=== PATIENT | female | born 1950 ===

== ENCOUNTER 2021-10-23 10:32 | Emergency (ER) | payer OTHER ==
--- OUTSIDE RECORDS SUMMARY | 2021-10-23 10:35 | XMS REPORT | Continuity of Care Document ---
:1950 Author Organization [facility] t Address [address] [place] [address] Dr. Aponte. [address] [place] [address] Care Team Providers Name Role Phone Michael Trivedi MD Attending Clinician Problems This patient has no known problems. Allergies, Adverse Reactions, Alerts This patient has no known allergies or adverse reactions. Medications This patient has no known medications. Procedures This patient has no known procedures. Encounters Start End Encounter Admission Attending Care Care Encounter Source Date/Time Date/Time Type Type Clinicians Facility Department ID 2019-09-04 2019-09-04 Telephone ROZINA Trivedi [id number] 00:00:00 00:00:00 Farhad Muñoz [id number] Antonella [id number] Jamie [id number] nal 092 Building Results This patient has no known results.
[2021-10-23 10:58] LABS: Urine Blood Negative (Negative); Urine Glucose Negative (Negative); Urine Protein 1+ (Negative); Urine Specific Gravity 1.015 (1.005-1.030); Urine pH 8.5 (5.0-7.0)
[2021-10-23 11:45] LABS: Absolute Lymphocytes (CBC) 1.3 K/uL (0.7-4.9); Hematocrit 46.5 % (36.0-45.0); MPV 9.5 fL (7.6-11.3)
[2021-10-23 12:12] LABS: Albumin 3.9 g/dL (3.4-5.0); Bilirubin Total 0.8 mg/dL (0.2-1.0); Potassium 3.6 mmol/L (3.5-5.1); Protein, Total 7.6 g/dL (6.4-8.2)
--- NOTE | 2021-10-23 12:55 | RAD REPORT ---
EXAM DESCRIPTION: CTAbdomen Pelvis W Contrast - 10/23/2021 12:43 pm CLINICAL HISTORY: Abdominal pain. ABD PAIN COMPARISON: No comparisons TECHNIQUE: Biphasic CT imaging of the abdomen and pelvis was performed with 100 ml non-ionic IV cont rast. All CT scans are performed using dose optimization technique as appropriate and may include automated exposure control or mA/KV adjustment according to patient size. FINDINGS: The lung bases are clear.Cholecystectomy. The liver, spleen, pancreas, adrenal glands and kidneys are within normal limits. No bowel obstruction, free air, free fluid or abscess. The appendix is not identified as a discrete structure, however, no secondary findings of appendicitis are identified. No evidence of significan t lymphadenopathy. No suspicious bony findings. IMPRESSION: No acute intra-abdominal or pelvic finding.
--- NOTE | 2021-10-23 13:36 | EDPHYS ---
Physician Documentation [facility] Name: Nida Cruz Age: 71 yrs Sex: Female : 1950 Arrival Date: 10/23/2021 Time: 10:35 Bed 17 Private MD: ED Physician Nav Carter HPI: 10/23 18:01 This 71 yrs old Female presents to ER via Ambulatory with complaints of Abdominal Pain, kdr Abdominal Swelling. 18:01 The patient presents with abdominal pain in the lower abdomen, in the left lower kdr quadrant. Onset: The symptoms/episode began/occurred gradually, 4 day(s) ago. The symptoms do not radiate. Associated signs and symptoms: none. The symptoms are described as achy, dull, vague. Modifying factors: The symptoms are alleviated by nothing, the symptoms are aggravated by nothing. Severity of pain: At its worst the pain was mild moderate just prior to arrival, in the emergency department the pain is unchanged. The patient has not experienced similar symptoms in the past. The patient has been recently seen by a physician: the patient's primary care provider. Patient has been having abdominal pain since Saturday the . She has been feeling full since then. She states that she is unable to eat much due to the fullness that she feels. Patient was sent to the ED for evaluation by Dr. Gutiérrez. Historical: - Allergies: 10:57 Prednisone; ap3 10:57 ceftriaxone; ap3 - Home Meds: 10:57 [place] Thyroid 120 mg Oral tab 1 tab [Active]; losartan-hydrochlorothiazide 50-12.5 mg ap3 oral tab [Active]; Singulair Oral [Active]; Claritin 10 mg Oral tab [Active]; Zetia 10 mg Oral tab 1 tab once daily [Active]; ProAir HFA 90 mcg/actuation inhalation HFAA 1 puff every 4 hours [Active]; Nasonex 50 mcg/actuation Nasal spry [Active]; Restasis 0.05 % ophthalmic (eye) dpet [Active]; tramadol 50 mg Oral tab 1 tab six a day [Active]; Probiotic 30 billion oral [Active]; Trelegy Ellipta 100-62.5-25 mcg inhalation dsdv 1 puff once daily [Active]; hydroxychloroquine 200 mg oral tab [Active]; Mucinex oral [Active]; Famotidine Oral [Active]; omeprazole 20 mg Oral cpDR [Active]; latanoprost ophthalmic (eye) [Active]; Orencia (with maltose) 250 mg intravenous solr every 4 wks [Active]; - PSHx: 10:57 Appendectomy; hysterectomy; Cholecystectomy; colonoscopy; endoscopy; midurethral ap3 suspension; liposuction; tummy tuck; forehead lift; lower facelift; - Immunization history:: Client reports receiving the 2nd dose of the Covid vaccine, and booster. - Social history:: Smoking status: Patient denies any tobacco usage or history of. ROS: 18:01 Constitutional: Negative for fever, chills, and weight loss, Eyes: Negative for injury, kdr pain, redness, and discharge, Neck: Negative for injury, pain, and swelling, Cardiovascular: Negative for chest pain, palpitations, and edema, Respiratory: Negative for shortness of breath, cough, wheezing, and pleuritic chest pain, Back: Negative for injury and pain, : Negative for injury, bleeding, discharge, and swelling, MS/Extremity: Negative for injury and deformity, Skin: Negative for injury, rash, and discoloration, Neuro: Negative for headache, weakness, numbness, tingling, and seizure activity. Psych: Negative for depression, anxiety, suicide ideation, homicidal ideation, and hallucinations, Allergy/Immunology: Negative for hives, rash, and allergies, Endocrine: Negative for neck swelling, polydipsia, polyuria, polyphagia, and marked weight changes, Hematologic/Lymphatic: Negative for swollen nodes, abnormal bleeding, and unusual bruising. 18:01 Abdomen/GI: Positive for abdominal pain, nausea, constipation, Negative for abdominal distension, anorexia, dysphagia, hematemesis, black/tarry stool, rectal pain, rectal bleeding. Exam: 18:01 Constitutional: This is a well developed, well nourished patient who is awake, alert, kdr and in no acute distress. Head/Face: Normocephalic, atraumatic. Eyes: Pupils equal round and reactive to light, extra-ocular motions intact. Lids and lashes normal. Conjunctiva and sclera are non-icteric and not injected. Cornea within normal limits. Periorbital areas with no swelling, redness, or edema. Neck: Trachea midline, no thyromegaly or masses palpated, and no cervical lymphadenopathy. Supple, full range of motion without nuchal rigidity, or vertebral point tenderness. No Meningismus. Chest/axilla: Normal chest wall appearance and motion. Nontender with no deformity. No lesions are appreciated. Cardiovascular: Regular rate and rhythm with a normal S1 and S2. No gallops, murmurs, or rubs. Normal PMI, no JVD. No pulse deficits. Respiratory: Lungs have equal breath sounds bilaterally, clear to auscultation and percussion. No rales, rhonchi or wheezes noted. No increased work of breathing, no retractions or nasal flaring. Back: No spinal tenderness. No costovertebral tenderness. Full range of motion. Skin: Warm, dry with normal turgor. Normal color with no rashes, no lesions, and no evidence of cellulitis. MS/ Extremity: Pulses equal, no cyanosis. Neurovascular intact. Full, normal range of motion. Neuro: Awake and alert, GCS 15, oriented to person, place, time, and situation. Cranial nerves II-XII grossly intact. Motor strength 5/5 in all extremities. Sensory grossly intact. Cerebellar exam normal. Normal gait. Psych: Awake, alert, with orientation to person, place and time. Behavior, mood, and affect are within normal limits. 18:01 Abdomen/GI: Inspection: abdomen appears normal, Bowel sounds: active, all quadrants, Palpation: soft, mild abdominal tenderness, in the left lower quadrant, mass, is not appreciated, rebound tenderness, is not appreciated, voluntary guarding, is not appreciated. Vital Signs: 10:55 BP 146 / 91; Pulse 99; Resp 18; Temp 98.2; Pulse Ox 99% on R/A; Weight 68.04 kg; Height ap3 5 ft. 4 in. (162.56 cm); Pain 8/10; 11:52 BP 126 / 88; Pulse 71; Pulse Ox 100% on R/A; ap3 12:34 BP 132 / 78; Pulse 86; Pulse Ox 95% on R/A; ap3 10:55 Body Mass Index 25.75 (68.04 kg, 162.56 cm) ap3 MDM: 13:36 Patient medically screened. kdr 18:01 Data reviewed: vital signs, nurses notes, lab test result(s), radiologic studies. kdr Counseling: I had a detailed discussion with the patient and/or guardian regarding: the historical points, exam findings, and any diagnostic results supporting the discharge/admit diagnosis, lab results, radiology results, the need for outpatient follow up. 10/23 10:37 Order name: CBC with Diff; Complete Time: 12:46 kdr 10/23 10:37 Order name: CMP; Complete Time: 12:46 kdr 10/23 10:37 Order name: Lipase; Complete Time: 12:46 kdr 10/23 10:37 Order name: CT Abd/Pelvis - IV Contrast Only; Complete Time: 13:01 kdr 10/23 10:57 Order name: Urine Dipstick-Ancillary; Complete Time: 11:27 EDAZ 10/23 10:37 Order name: IV Saline Lock; Complete Time: 11:31 kdr 10/23 10:37 Order name: Labs collected and sent; Complete Time: 11:31 kdr Administered Medications: 14:10 Drug: Motrin (ibuprofen) 600 mg Route: PO; ap3 18:52 Follow up: Response: No adverse reaction ap3 Disposition Summary: 10/23/21 13:36 Discharge Ordered Location: Home kdr Problem: new kdr Symptoms: have improved kdr Condition: Stable kdr Diagnosis - Abdominal pain, Generalized kdr - Lower abdominal pain, unspecified - LLQ kdr Followup: kdr - With: Jerman Gutiérrez MD - When: 2 - 3 days - Reason: If symptoms return, Further diagnostic work-up, Recheck today's complaints, Continuance of care, Re-evaluation by your physician Discharge Instructions: - Discharge Summary Sheet kdr - Constipation, Adult, [id number] kdr - Abdominal Pain, Adult, [id number] kdr Forms: - Medication Reconciliation Form kdr - Thank You Letter kdr Prescriptions: - Senokot-S 8.6-50 mg Oral tablet - take 2 tablet by ORAL route 2 times per day; 80 tablet; Refills: 0, Product kdr Selection Permitted Signatures: Dispatcher [employer] Nav Whitley MD MD kdr Sari Fitzgerald RN RN ap3
--- NOTE | 2021-10-23 13:36 | ER ---
Nurse's Notes [facility] Name: Nida Cruz Age: 71 yrs Sex: Female : 1950 Arrival Date: 10/23/2021 Time: 10:35 Bed 17 Private MD: Diagnosis: Abdominal pain, Generalized;Lower abdominal pain, unspecified-LLQ Presentation: 10/23 10:55 Chief complaint: Patient states: she began having abdominal pain on Saturday10/20/2021. ap3 Patient states since then she also constantly feels full, and is unable to eat much due to that feeling. Patient reports seeing her PCP this morning, and was directed to the ED for further evaluation. Coronavirus screen: At this time, the client does not indicate any symptoms associated with coronavirus-19. Ebola Screen: No symptoms or risks identified at this time. Initial Sepsis Screen: Does the patient meet any 2 criteria? HR > 90 bpm. Does the patient have a suspected source of infection? No. Patient's initial sepsis screen is negative. Risk Assessment: Do you want to hurt yourself or someone else? Patient reports no desire to harm self or others. Onset of symptoms was October 20, 2021. 10:55 Method Of Arrival: Ambulatory ap3 10:55 Acuity: NEHA 3 ap3 Triage Assessment: 11:06 General: Appears in no apparent distress. comfortable, Behavior is calm, cooperative, ap3 appropriate for age. Pain: Complains of pain in abdomen Pain currently is 8 out of 10 on a pain scale. Quality of pain is described as tearing Pain began gradually, 2-3 days ago. Neuro: Level of Consciousness is awake, alert, obeys commands, Oriented to person, place, time, situation, Gait is steady, Speech is normal. Cardiovascular: Patient's skin is warm and dry. Respiratory: Airway is patent Respiratory effort is even, unlabored, Respiratory pattern is regular, symmetrical. GI: Reports lower abdominal pain, upper abdominal pain. Historical: - Allergies: 10:57 Prednisone; ap3 10:57 ceftriaxone; ap3 - Home Meds: 10:57 [place] Thyroid 120 mg Oral tab 1 tab [Active]; losartan-hydrochlorothiazide 50-12.5 mg ap3 oral tab [Active]; Singulair Oral [Active]; Claritin 10 mg Oral tab [Active]; Zetia 10 mg Oral tab 1 tab once daily [Active]; ProAir HFA 90 mcg/actuation inhalation HFAA 1 puff every 4 hours [Active]; Nasonex 50 mcg/actuation Nasal spry [Active]; Restasis 0.05 % ophthalmic (eye) dpet [Active]; tramadol 50 mg Oral tab 1 tab six a day [Active]; Probiotic 30 billion oral [Active]; Trelegy Ellipta 100-62.5-25 mcg inhalation dsdv 1 puff once daily [Active]; hydroxychloroquine 200 mg oral tab [Active]; Mucinex oral [Active]; Famotidine Oral [Active]; omeprazole 20 mg Oral cpDR [Active]; latanoprost ophthalmic (eye) [Active]; Orencia (with maltose) 250 mg intravenous solr every 4 wks [Active]; - PSHx: 10:57 Appendectomy; hysterectomy; Cholecystectomy; colonoscopy; endoscopy; midurethral ap3 suspension; liposuction; tummy tuck; forehead lift; lower facelift; - Immunization history:: Client reports receiving the 2nd dose of the Covid vaccine, and booster. - Social history:: Smoking status: Patient denies any tobacco usage or history of. Screenin:07 Abuse screen: Denies threats or abuse. Nutritional screening: No deficits noted. ap3 Tuberculosis screening: No symptoms or risk factors identified. Fall Risk Fall in past 12 months (25 points). No secondary diagnosis (0 pts). Ambulatory Aid- None/Bed Rest/Nurse Assist (0 pts). Gait- Normal/Bed Rest/Wheelchair (0 pts) Mental Status- Oriented to own ability (0 pts). Total Rodriguez Fall Scale indicates Low Risk Score (25-44 pts). Fall prevention measures have been instituted. Side Rails Up X 2 Placed close to Nursing Station Frequent Obs/Assesments occuring Family Present and informed to notify staff if they need to leave bedside As available Patient and Family Educated on Fall Prevention Program and strategies. Assessment: 11:07 GI: Bowel sounds present X 4 quads. Abd is soft X 4 quads. ap3 11:52 Reassessment: Patient and/or family updated on plan of care and expected duration. Pain ap3 level reassessed. Patient is alert, oriented x 3, equal unlabored respirations, skin warm/dry/pink. 12:35 Reassessment: Patient and/or family updated on plan of care and expected duration. Pain ap3 level reassessed. Patient is alert, oriented x 3, equal unlabored respirations, skin warm/dry/pink. Vital Signs: 10:55 BP 146 / 91; Pulse 99; Resp 18; Temp 98.2; Pulse Ox 99% on R/A; Weight 68.04 kg; Height ap3 5 ft. 4 in. (162.56 cm); Pain 8/10; 11:52 BP 126 / 88; Pulse 71; Pulse Ox 100% on R/A; ap3 12:34 BP 132 / 78; Pulse 86; Pulse Ox 95% on R/A; ap3 10:55 Body Mass Index 25.75 (68.04 kg, 162.56 cm) ap3 ED Course: 10:35 Patient arrived in ED. kz 10:35 Nav Carter MD is Attending Physician. kdr 10:46 Sari Fitzgerald, JAVIER is Primary Nurse. ap3 10:57 Triage completed. ap3 11:07 Arm band placed on right wrist. ap3 11:07 Patient has correct armband on for positive identification. Bed in low position. Call ap3 light in reach. Side rails up X 1. Adult w/ patient. Pulse ox on. NIBP on. Door closed. Noise minimized. 11:28 Inserted saline lock: 20 gauge in left antecubital area, using aseptic technique. Blood ap3 collected. 12:[address] via wheelchair. ap3 12:43 CT Abd/Pelvis - IV Contrast Only In Process Unspecified. EDMS 13:35 Jerman Gutiérrez MD is Referral Physician. kdr 14:03 No provider procedures requiring assistance completed. IV discontinued, intact, ap3 bleeding controlled, No redness/swelling at site. Pressure dressing applied. Administered Medications: 14:10 Drug: Motrin (ibuprofen) 600 mg Route: PO; ap3 18:52 Follow up: Response: No adverse reaction ap3 Outcome: 13:36 Discharge ordered by . kdr 14:04 Discharged to home ambulatory, with family. ap3 14:04 Condition: good 14:04 Discharge instructions given to patient, Instructed on discharge instructions, follow up and referral plans. medication usage, Demonstrated understanding of instructions, follow-up care, medications, Prescriptions given X 1. 14:21 Patient left the ED. ap3 Signatures: Dispatcher [employer] EDMS Nav Carter MD MD kdr Prokisch, Amanda, RN RN ap3 Praveena Orozco
[2021-10-23] MEDS ORDERED: IBUPROFEN 200 MG TAB PO ONE (14:05)
[2021-10-23 14:30] VITALS: TEMP 98.2
[2021-10-23 14:32] VITALS: BP 132/78; O2SAT 95
== END 2021-10-23 14:21 | disposition home or self-care (01) ==
LOC: ER 10:32
DX: R10.84 Generalized abdominal pain (principal); Z88.8 Allergy status to other drugs, medicaments and biological substances
CPT/HCPCS: 85025; 36415; 81003; 83690; 80053; 74177; 99284; Q9967